=== PATIENT | female | born 1975 | race American Indian/Alaskan Native ===

== ENCOUNTER 2019-04-04 04:39 | Emergency (ER) | payer OTHER, MEDICARE ==
[2019-04-04 05:20] LABS: Basophils % (Auto) 0.2 % (0.0-1.8); Eosinophils % (Auto) 0.2 % (0.0-4.3); Hematocrit 37.6 % (30.3-42.9); Hemoglobin 12.6 gm/dl (10.1-14.3); Lymphocytes # (Auto) 0.9 K/mm3 (1.2-5.4); Lymphocytes % (Auto) 10.3 % (13.4-35.0); Mean Corpuscular HGB Conc 34 % (30-34); Mean Corpuscular Volume 96 fl (79-97); Monocytes # (Auto) 0.3 K/mm3 (0.0-0.8); Monocytes % (Auto) 3.7 % (0.0-7.3); Platelet Count 176 K/mm3 (140-440); Red Blood Count 3.94 M/mm3 (3.65-5.03); Red Cell Distribution Width 13.7 % (13.2-15.2)
[2019-04-04 05:38] LABS: Albumin 3.3 g/dL (3.9-5); Calcium 7.9 mg/dL (8.4-10.2)
[2019-04-04 06:18] LABS: Bilirubin,Urine NEG (Negative); Blood,Urine NEG (Negative); Color,Urine Yellow (Yellow); Urobilinogen,Urine < 2.0 mg/dL (<2.0)
--- NOTE | 2019-04-04 07:06 | XRay Report ---
CHEST 1 VIEW INDICATION / CLINICAL INFORMATION: Chest Pain. COMPARISON: None available. FINDINGS: SUPPORT DEVICES: None. HEART / MEDIASTINUM: No significant abnormality. LUNGS / PLEURA: There is mild interstitial prominence bilaterally. Mild left basilar atelectasis. No suggestion of pneumonia or pleural effusion. No pneumothorax. ADDITIONAL FINDINGS: No significant additional findings. IMPRESSION: 1. Mild bilateral interstitial prominence. Unfortunately, without prior radiographs, it is unclear if this is chronic interstitial lung disease or prominent pulmonary vascular congestion. I would favor chronic interstitial disease. 2. Mild left basilar atelectasis. Signer Name: Babs Cano MD Signed: 04/04/2019 7:00 AM Workstation Name: [id number]
[2019-04-04] MEDS ORDERED: MORPHINE 4 MG/1 ML INJ IV ONE (07:38)
[2019-04-04] MEDS ORDERED: KETOROLAC 30 MG/1 ML INJ IV ONE (07:38)
--- NOTE | 2019-04-04 08:31 | Ultrasound Report ---
ULTRASOUND ABDOMEN, LIMITED (RIGHT UPPER QUADRANT) INDICATION: gallbladder scan RUQ pain abnormal liver tests. COMPARISON: None available. FINDINGS: Pancreas: Visualized portion shows no significant abnormality. Liver: Heterogeneous.. Gallbladder: Slightly contracted but the gallbladder wall appears thickened measuring between 3 and 4 mm in thickness Bile ducts: Normal. Common Bile Duct measures 3 mm. Free fluid: None. Additional Findings: None. IMPRESSION: Gallbladder wall thickening without gallstones. Cholecystitis is not excluded Signer Name: Adrien Nvaarro MD Signed: 04/04/2019 8:27 AM Workstation Name: [id number]
--- NOTE | 2019-04-04 08:32 | Cat Scan Report ---
CT ABDOMEN AND PELVIS WITHOUT CONTRAST INDICATION / CLINICAL INFORMATION: Right upper quadrant pain. TECHNIQUE: Axial CT images were obtained through the abdomen and pelvis without IV contrast. All CT scans at [facility] location are performed using CT dose reduction for ALARA by means of automated exposure control. COMPARISON: None available. FINDINGS: LOWER CHEST: Bibasilar atelectasis. LIVER: No significant abnormality. GALLBLADDER: Thickened with mild pericholecystic fluid. BILE DUCTS: No significant abnormality. PANCREAS: No significant abnormality. SPLEEN: No significant abnormality. ADRENALS: No significant abnormality. RIGHT KIDNEY and URETER: No significant abnormality. LEFT KIDNEY and URETER: No significant abnormality. STOMACH and SMALL BOWEL: No significant abnormality. COLON: No significant abnormality. APPENDIX: No significant abnormality. PERITONEUM: No free fluid. No free air. No fluid collection. LYMPH NODES: No significant adenopathy. AORTA and ARTERIES: No significant abnormality. IVC and VEINS: No significant abnormality. URINARY BLADDER: No significant abnormality. REPRODUCTIVE ORGANS: No significant abnormality. ADDITIONAL FINDINGS: None. SKELETAL SYSTEM: No significant abnormality. IMPRESSION: Thickened gallbladder with mild pericholecystic fluid. No gallstones appreciated. Cholecystitis canno t be excluded. Signer Name: Adrien Navarro MD Signed: 04/04/2019 8:27 AM Workstation Name: [id number]
--- NOTE | 2019-04-04 10:33 | Emergency Department Report ---
ED Abdominal Pain HPI - General Chief Complaint: Abdominal Pain Stated Complaint: ABDOMINAL PAIN Time Seen by Provider: 04/04/19 07:26 Source: patient, family (significant other), EMS Mode of arrival: Ambulatory Limitations: No Limitations - History of Present Illness Initial Comments: Mrs. Turner is a 44 yo female with hx of HTN who presents with RUQ and RLQ pain sudden onset this morning 0300. She has dull 8/10 pain. Pain begins in RUQ and radiates to RLQ. No n/v. constant. Pain does change with movement. Only surgery . No other abdominal surgeries. She recently underwent jaw surgery at [facility] on for TMJ syndrome and b one hyperplasia. She was discharged with Percocet, antibiotic, a muscle relaxant and anti-inflammatory. MD Complaint: abdominal pain -: Sudden, This morning Location: RUQ Radiation: RLQ Severity: severe Severity scale (0 -10): 8 Quality: aching, dull Consistency: constant Improves With: nothing Worsens With: movement Context: recent surgery/procedure (general surgery at [facility]) Associated Symptoms: other (last bowel movement on Friday) - Related Data Allergies Allergy/AdvReac Type Severity Reaction Status Date / Time No Known Allergies Allergy Unverified 04/04/19 04:52 ED Review of Systems ROS: Stated complaint: ABDOMINAL PAIN Other details as noted in HPI Comment: All other systems reviewed and negative Constitutional: denies: chills, fever Respiratory: denies: cough, shortness of breath Gastrointestinal: abdominal pain Musculoskeletal: denies: back pain ED Past Medical Hx - Past Medical History Previous Medical History?: Yes Hx Hypertension: Yes - Surgical History Past Surgical History?: Yes Additional Surgical History: Jaw surgery - Social History Smoking Status: Current Every Day Smoker Substance Use Type: Alcohol ED Physical Exam - General Limitations: No Limitations General appearance: alert, in no apparent distress - Head Head exam: Present: atraumatic, normocephalic - Eye Eye exam: Present: normal appearance - ENT ENT exam: Present: mucous membranes moist - Neck Neck exam: Present: normal inspection, full ROM - Respiratory Respiratory exam: Present: normal lung sounds bilaterally. Absent: respiratory distress, wheezes, rales, rhonchi - Cardiovascular Cardiovascular Exam: Present: regular rate, normal rhythm, normal heart sounds. Absent: systolic murmur, diastolic murmur, rubs, gallop - GI/Abdominal GI/Abdominal exam: Present: soft, normal bowel sounds. Absent: distended, tenderness, guarding, rebound - Extremities Exam Extremities exam: Present: normal inspection - Back Exam Back exam: Present: normal inspection - Neurological Exam Neurological exam: Present: alert, oriented X3 - Psychiatric Psychiatric exam: Present: normal affect, normal mood - Skin Skin exam: Present: warm, dry, intact, normal color. Absent: rash ED Course Vital Signs 04/04/19 04:50 Temperature 98.9 F Pulse Rate 98 H Respiratory 20 Rate Blood Pressure 134/99 O2 Sat by Pulse 98 Oximetry ED Medical Decision Making - Lab Data Result diagrams: 04/04/19 04:54 04/04/19 04:54 Laboratory Results - last 24 hr 04/04/19 04/04/19 04/04/19 04:54 04:54 05:03 WBC 8.4 RBC 3.94 Hgb 12.6 Hct 37.6 MCV 96 MCH 32 MCHC 34 RDW 13.7 Plt Count 176 Lymph % (Auto) 10.3 L [place] % (Auto) 3.7 Eos % (Auto) 0.2 Baso % (Auto) 0.2 Lymph # 0.9 L [place] # 0.3 Eos # 0.0 Baso # 0.0 Seg Neutrophils % 85.6 H Seg Neutrophils # 7.2 Sodium 140 Potassium 3.3 L Chloride 102.6 Carbon Dioxide 25 Anion Gap 16 BUN 20 H Creatinine 1.6 H Estimated GFR 35 BUN/Creatinine Ratio 13 Glucose 174 H Calcium 7.9 L Total Bilirubin 0.30 AST 231 H ALT 65 H Alkaline Phosphatase 137 H Troponin T Total Protein 6.4 Albumin 3.3 L Albumin/Globulin Ratio 1.1 Lipase HCG, Qual Negative Urine Color Urine Turbidity Urine pH Ur Specific [place] Urine Protein Urine Glucose (UA) Urine Ketones Urine Blood Urine Nitrite Urine Bilirubin Urine Urobilinogen Ur Leukocyte Esterase Urine WBC (Auto) Urine RBC (Auto) U Epithel Cells (Auto) 04/04/19 04/04/19 04/04/19 05:30 05:30 05:40 WBC RBC Hgb Hct MCV MCH MCHC RDW Plt Count Lymph % (Auto) [place] % (Auto) Eos % (Auto) Baso % (Auto) Lymph # [place] # Eos # Baso # Seg Neutrophils % Seg Neutrophils # Sodium Potassium Chloride Carbon Dioxide Anion Gap BUN Creatinine Estimated GFR BUN/Creatinine Ratio Glucose Calcium Total Bilirubin AST ALT Alkaline Phosphatase Troponin T < 0.010 Total Protein Albumin Albumin/Globulin Ratio Lipase 30 HCG, Qual Urine Color Yellow Urine Turbidity Clear Urine pH 5.0 Ur Specific [place] 1.015 Urine Protein 30 mg/dl Urine Glucose (UA) 50 Urine Ketones Neg Urine Blood Neg Urine Nitrite Neg Urine Bilirubin Neg Urine Urobilinogen < 2.0 Ur Leukocyte Esterase Neg Urine WBC (Auto) 1.0 Urine RBC (Auto) 3.0 U Epithel Cells (Auto) 3.0 - Radiology Data Radiology results: report reviewed CT abdomen and pelvis: Thickened gallbladder wall with mild pericholecystic fluid Abdominal ultrasound: Normal CBD diameter 3-4 mm with gallbladder wall thickening - Medical Decision Making Clinical impression: Acalculous cholecystitis, Dr. Knight recommended hospital admission IV hydration for a GI antibiotics. She also recommended HIDA scan. Unfortunately Mrs. Vicente eloped prior to imaging results. Prior to elopement, nursing staff including our charge nurse implored her to stay until she received results. I called Mrs. Vicente at 10:15 AM [phone]. She understands that she needs hospital admission. She will return to the emergency department. Due to liver injury pattern, I suspect alcohol abuse. No indication of biliary obstruction with normal bilirubin normal CBD diameter and mildly elevated alkaline phosphatase. Current disposition: elopement, current plan: Hospital admission for HIDA scan, IV hydration and IV antibiotics. As of 1:11 PM, 3 hours after initial phone call. Mrs. Turner has not returned to the ED for hospital admission. During initial conversation, she understood her diagnosis and need hospital admission. Critical care attestation.: If time is entered above; I have spent that time in minutes in the direct care of this critically ill patient, excluding procedure time. ED Disposition Clinical Impression: MISAEL (acute kidney injury), Abnormal liver enzymes, Cholecystitis Disposition: ELOPED Is pt being admited?: No Does the pt Need Aspirin: No Condition: Fair Referrals: HEENA HARRISON [Other] - 3-5 Days
[2019-04-04 13:47] VITALS: BP 115/62
== END 2019-04-04 13:49 | disposition left against medical advice (07) ==
LOC: ED 04:39
DX: N17.9 Acute kidney failure, unspecified (principal); K81.9 Cholecystitis, unspecified; F17.200 Nicotine dependence, unspecified, uncomplicated; R94.5 Abnormal results of liver function studies; I10 Essential (primary) hypertension
CPT/HCPCS: 36415; 71045; 74176; 76705; 80053; 81001; 83690; 84484; 84703; 85025; 93005; 93010; 96374; 96375; 99285; J1885; J2270